=== PATIENT | female | born 1960 | race African-American/Black ===

== ENCOUNTER 2024-04-22 00:47 | Emergency (ER) | payer MEDICARE, MEDICAID ==
[~2024-04-22] VITALS: Ht 175.3 cm; Wt 66.0 kg
[2024-04-22 00:55] VITALS: O2SAT 98
[2024-04-22 01:50] LABS: CLARITY URINE CLEAR (CLEAR); COLOR URINE YELLOW (YELLOW); GLUCOSE URINE NEGATIVE (NEGATIVE); KETONES URINE TRACE (NEGATIVE); LEUKOCYTE ESTERASE URINE NEGATIVE (NEGATIVE); NITRITE URINE NEGATIVE (NEGATIVE); OCCULT BLOOD URINE NEGATIVE (NEGATIVE); PROTEIN URINE NEGATIVE (NEGATIVE); SPECIFIC GRAVITY URINE 1.015 (1.005-1.030); UROBILINOGEN URINE 0.2 E.U./dL (0.2-1.0)
[2024-04-22 02:00] LABS: CHLORIDE 104 mEq/L (98-107); POTASSIUM 4.1 mEq/L (3.5-5.1); SODIUM 139 mEq/L (136-145)
[2024-04-22 02:01] LABS: CARBON DIOXIDE 27 mEq/L (21-32)
[2024-04-22 02:06] LABS: CREATININE 0.8 mg/dL (0.6-1.0); GLUCOSE 135 mg/dL (70-105); HEMATOCRIT. 40.7 % (36.0-48.0); HEMOGLOBIN. 13.4 g/dL (12.0-16.0); MEAN CORPUSCULAR HEMOGLOBIN 31.5 pg (28.0-32.0); MEAN CORPUSCULAR HGB CONC 32.9 g/dL (31.0-37.0); MEAN CORPUSCULAR VOLUME 95.6 fL (81.0-99.0); MEAN PLATELET VOLUME 7.7 fl (7.4-10.4); PLATELET 277 x1000/uL (130-400); RED BLOOD CELL COUNT 4.26 mill/uL (4.2-5.4); RED CELL DISTRIBUTION WIDTH 13.9 % (11.6-14.6); TROPONIN I HIGH SENSITIVITY 6 ng/L (3.0-34); UREA NITROGEN BLOOD 14 mg/dL (9-23); WHITE BLOOD COUNT 3.8 x1000/uL (4.5-11.0)
[2024-04-22 02:08] LABS: ALANINE AMINOTRANSFERASE 16 IU/L (10-49); ALBUMIN 4.5 g/dL (3.2-4.8); ASPARTATE AMINOTRANSFERASE 27 IU/L (<34); BILIRUBIN DIRECT 0.1 mg/dL (<=3.0); BILIRUBIN TOTAL 0.4 mg/dL (0.1-1.0); PROTEIN TOTAL 7.2 g/dL (6.0-8.3)
[2024-04-22 02:19] LABS: DIFFERENTIAL COMMENT 1
[2024-04-22 03:28] LABS: D-DIMER 0.53 mg/L FEU (<0.50); INR 0.9; PROTHROMBIN TIME 10.3 sec (9.6-11.0)
[2024-04-22 03:30] LABS: PLATELET ESTIMATE NORMAL
[2024-04-22 09:17] VITALS: BP 145/73; PULSE 68; RESP 15; TEMP 97.8
== END 2024-04-22 09:18 | disposition admitted as inpatient to this hospital (09) ==
LOC: ER 00:47 → EDBEDREQ 05:04 → EDBEDREQTM 05:04 → ER 09:18
DX: Z88.5 Allergy status to narcotic agent (principal); Z88.3 Allergy status to other anti-infective agents; I10 Essential (primary) hypertension; I49.9 Cardiac arrhythmia, unspecified
CPT/HCPCS: 36415; 71045; 80048; 80076; 81003; 83880; 84484; 85025; 85379; 93005; 99291